=== PATIENT | male | born 1960 | race Caucasian/White ===

== ENCOUNTER 2019-01-15 08:02 | Emergency (ER) | payer BC ==
[~2019-01-15] VITALS: Ht 167.6 cm; Wt 90.7 kg
[2019-01-15] MEDS ORDERED: IV NORMAL SALINE 1000ML BAG 1,000 ML IV SCH (08:18)
--- NOTE | 2019-01-15 08:24 | PHYS DOC ---
Past Medical History Past Medical History: Diabetes-Type II, High Cholesterol Past Surgical History: No Surgical History Alcohol Use: Occasionally Drug Use: None Adult General Chief Complaint Chief Complaint: ABDOMINAL PAIN HPI HPI Patient is a 59 year old male who presents with nausea and vomiting for the past 5 days. He's also noticed diarrhea during the same five-day. That is been having looser than normal stools for the past month. Patient is normally constipated. He was changed from his regular high cholesterol medicine/statin around the time of this change in his stool pattern. He reports being unable to pass flatus for the past 5 days, is burping and belching. He has left lower quadrant pain. The burping and belching seems to make this left lower quadrant pain better. Nothing really seems to make it worse. Denies any blood in the stool or emesis. Denies any travel. Denies any other changes in diet or medicines. Pain is mild, one or 2 out of 10. Rates it is more of a discomfort. No radiation.[] Review of Systems Review of Systems Constitutional: Denies fever or chills [] Eyes: Denies change in visual acuity, redness, or eye pain [] HENT: Denies nasal congestion or sore throat [] Respiratory: Denies cough or shortness of breath [] Cardiovascular: No chest pain or palpitations[] GI: See history of present illness[] : Denies dysuria or hematuria [] Musculoskeletal: Denies back pain or joint pain [] Integument: Denies rash or skin lesions [] Neurologic: Denies headache, focal weakness or sensory changes [] Endocrine: Denies polyuria or polydipsia [] All other systems were reviewed and found to be within normal limits, except as documented in this note. Current Medications Current Medications Current Medications Medications (Trade) Dose Ordered Sig/[place] Start Time Stop Time Status Last Admin Dose Admin Hyoscyamine (Anaspaz) 0.125 mg ONCE ONCE 01/15/19 08:30 01/15/19 08:31 DC 01/15/19 08:43 0.125 MG Info (CONTRAST GIVEN -- Rx MONITORING) 1 each PRN DAILY PRN 01/15/19 09:00 01/17/19 08:59 Iohexol (Omnipaque 240 Mg/ml) 30 ml 1X ONCE 01/15/19 09:00 01/15/19 09:01 DC 01/15/19 09:00 30 ML Iohexol (Omnipaque 300 Mg/ml) 75 ml 1X ONCE 01/15/19 09:00 01/15/19 09:01 DC 01/15/19 09:00 75 ML Ondansetron HCl (Zofran) 4 mg 1X ONCE 01/15/19 08:30 01/15/19 08:31 DC Sodium Chloride 1,000 ml @ 1,000 mls/hr Q1H 01/15/19 08:18 01/15/19 09:17 DC 01/15/19 08:40 1,000 MLS/HR Allergies Allergies Allergies Coded Allergies Type Severity Reaction Last Updated Verified Penicillins Allergy Intermediate 01/15/19 Yes Physical Exam Physical Exam Constitutional: Well developed, well nourished, no acute distress, non-toxic appearance. [] HENT: Normocephalic, atraumatic, bilateral external ears normal, oropharynx moist, no oral exudates, nose normal. [] Eyes: PERRLA, EOMI, conjunctiva normal, no discharge. [] Neck: Normal range of motion, no tenderness, supple, no stridor. [] Cardiovascular:Heart rate regular rhythm, no murmur [] Lungs & Thorax: Bilateral breath sounds clear to auscultation [] Abdomen: Bowel sounds hyperactive, soft, mild left lower quadrant tenderness, no rebound, no guarding, no rigidity, no masses, no pulsatile masses. He sits up without any difficulty.[] Skin: Warm, dry, no erythema, no rash. [] Back: No tenderness, no CVA tenderness. [] Extremities: No tenderness, no cyanosis, no clubbing, ROM intact, no edema. [] Neurologic: Alert and oriented X 3, normal motor function, normal sensory function, no focal deficits noted. [] Psychologic: Affect normal, judgement normal, mood normal. [] Current Patient Data Vital Signs Vital Signs Date Time Temp Pulse Resp B/P (MAP) Pulse Ox O2 Delivery O2 Flow Rate FiO2 01/15/19 10:01 79 18 138/73 (94) 98 Room Air 01/15/19 08:05 98.2 98.2 Lab Values Laboratory Tests Test 01/15/19 08:30 01/15/19 09:45 White Blood Count 8.2 x10^3/uL (4.0-11.0) Red Blood Count 5.18 x10^6/uL (4.30-5.70) Hemoglobin 14.5 g/dL (13.0-17.5) Hematocrit 42.2 % (39.0-53.0) Mean Corpuscular Volume 81 fL (79-100) Mean Corpuscular Hemoglobin 28 pg (25-35) Mean Corpuscular Hemoglobin Concent 34 g/dL (31-37) Red Cell Distribution Width 13.3 % (11.5-14.5) Platelet Count 186 x10^3/uL (140-400) Neutrophils (%) (Auto) 53 % (31-73) Lymphocytes (%) (Auto) 30 % (24-48) Monocytes (%) (Auto) 16 % (0-9) H Eosinophils (%) (Auto) 1 % (0-3) Basophils (%) (Auto) 0 % (0-3) Neutrophils # (Auto) 4.4 x10^3uL (1.8-7.7) Lymphocytes # (Auto) 2.5 x10^3/uL (1.0-4.8) Monocytes # (Auto) 1.3 x10^3/uL (0.0-1.1) H Eosinophils # (Auto) 0.1 x10^3/uL (0.0-0.7) Basophils # (Auto) 0.0 x10^3/uL (0.0-0.2) Prothrombin Time 13.5 SEC (11.7-14.0) Prothrombin Time INR 1.1 (0.8-1.1) Sodium Level 139 mmol/L (136-145) Potassium Level 3.7 mmol/L (3.5-5.1) Chloride Level 102 mmol/L (98-107) Carbon Dioxide Level 25 mmol/L (21-32) Anion Gap 12 (6-14) Blood Urea Nitrogen 20 mg/dL (8-26) Creatinine 0.9 mg/dL (0.7-1.3) Estimated GFR (Cockcroft-Gault) 86.4 BUN/Creatinine Ratio 22 (6-20) H Glucose Level 144 mg/dL (70-99) H Calcium Level 9.5 mg/dL (8.5-10.1) Total Bilirubin 0.7 mg/dL (0.2-1.0) Aspartate Amino Transferase (AST) 14 U/L (15-37) L Alanine Aminotransferase (ALT) 22 U/L (16-63) Alkaline Phosphatase 69 U/L (46-116) Total Protein 7.2 g/dL (6.4-8.2) Albumin 4.0 g/dL (3.4-5.0) Albumin/Globulin Ratio 1.3 (1.0-1.7) Lipase 172 U/L (73-393) Urine Collection Type Unknown Urine Color Yellow Urine Clarity Clear Urine pH 5.5 Urine Specific [place] >=1.030 Urine Protein Negative mg/dL (NEG-TRACE) Urine Glucose (UA) Negative mg/dL (NEG) Urine Ketones (Stick) 40 mg/dL (NEG) Urine Blood Negative (NEG) Urine Nitrite Negative (NEG) Urine Bilirubin Small (NEG) Urine Urobilinogen Dipstick 1.0 mg/dL (0.2 mg/dL) Urine Leukocyte Esterase Negative (NEG) Urine RBC 0 /HPF (0-2) Urine WBC 0 /HPF (0-4) Urine Squamous Epithelial Cells Many /LPF Urine Bacteria 0 /HPF (0-FEW) Urine Mucus Marked /LPF Laboratory Tests 01/15/19 08:30 Laboratory Tests 01/15/19 08:30 EKG EKG [] Radiology/Procedures Radiology/Procedures CT of the abdomen and pelvis with contrast, 01/15/2019: HISTORY: Left lower quadrant pain, stool change Multidetector CT imaging was performed following oral and IV administration of contrast. There is mild streaky atelectasis or scarring posteriorly in the lung bases. No hepatic abnormality is detected. The gallbladder is unremarkable. The pancreas shows no abnormality. The spleen is of normal size. There is a small cyst in the lower pole of the left kidney. The kidneys show no evidence of obstruction. There is mild aortic calcific plaquing without evidence of aneurysm. No retroperitoneal, iliac or inguinal adenopathy is seen. Multiple small mesenteric lymph nodes are evident without pathologic enlargement. The prostate gland is at the upper limits of normal in size measuring 5 cm in width. It contains multiple calcifications. There is mild diffuse bladder wall thickening. The bowel loops are not dilated. The appendix is visualized and shows no abnormality. No free fluid or free air is evident in the abdomen or pelvis. There are mild scattered degenerative changes in the spine. IMPRESSION: 1. Mild diffuse bladder wall thickening which may reflect chronic bladder outlet obstruction in this patient with a borderline enlarged prostate gland versus cystitis. Clinical correlation suggested. 2. Small left renal cyst.[] Course & Med Decision Making Course & Med Decision Making Pertinent Labs and Imaging studies reviewed. (See chart for details) ED course: Patient arrived, was placed in bed, and tolerated exam well. He was able to tolerate oral contrast without any antiemetics and deferred that antiemetic. Was transferred to and from [place] with any complications. After the return laboratory and imaging findings, these were discussed with the patient voiced understanding. All questions were answered. Patient did at achieve good control of his discomfort with the medications otherwise administered in the emergency department. Patient was discharged in improved condition. Venkatesh decision making: There is no evidence of an obstruction, perforation, diverticulitis, masses, or other significant intra-abdominal pathology. No evidence of oral intake intolerance.[] Dragon Disclaimer Dragon Disclaimer This electronic medical record was generated, in whole or in part, using a voice recognition dictation system. Departure Departure Impression: Primary Impression: Nausea, vomiting, and diarrhea Additional Impression: Abdominal pain Disposition: HOME, SELF-CARE Condition: IMPROVED Referrals: UNKNOWN PCP NAME (PCP) Patient Instructions: Abdominal Pain, Diet for Diarrhea, Adult, Nausea and Vomiting Additional Instructions: Drink plenty of fluids. Follow-up with your regular doctor in 2 days. Return to the ER if worsening discomfort or any other concerns. Scripts Psyllium Husk (METAMUCIL) 0.52 Gm Capsule 0.52 GM PO DAILY, #30 CAP Prov: JORDAN TORIBIO DO 01/15/19 Ondansetron Hcl (ZOFRAN) 4 Mg Tablet 4 MG PO PRN TID PRN for NAUSEA/VOMITING, #15 nausea/vomiting Prov: JORDAN TORIBIO DO 01/15/19 Hyoscyamine Sulfate (LEVSIN) 0.125 Mg Tablet 0.125 MG PO QID, #30 TAB Prov: JORDAN TORIBIO DO 01/15/19 Problem Qualifiers Additional Impression: Abdominal pain Abdominal location: left lower quadrant Qualified Codes: R10.32 - Left lower quadrant pain JORDAN TORIBIO DO Jan 15, 2019 08:24
[2019-01-15] MEDS ORDERED: HYOSCYAMINE 0.125 MG TAB.RAPDIS PO ONE (08:30)
[2019-01-15] MEDS ORDERED: ONDANSETRON PF 4 MG/2 ML VIAL. IV ONE (08:30)
[2019-01-15 08:45] LABS: CALCIUM 9.5 mg/dL (8.5-10.1); CREATININE 0.9 mg/dL (0.7-1.3); GFR 86.4; POTASSIUM 3.7 mmol/L (3.5-5.1)
[2019-01-15 08:50] LABS: BASO % 0 % (0-3); EOS # 0.1 x10^3/uL (0.0-0.7); EOS % 1 % (0-3); HEMATOCRIT 42.2 % (39.0-53.0); HEMOGLOBIN 14.5 g/dL (13.0-17.5); LYMPH # 2.5 x10^3/uL (1.0-4.8); LYMPH % 30 % (24-48); MEAN CORPUSCULAR HEMOGLOBIN 28 pg (25-35); MEAN CORPUSCULAR HGB CONC 34 g/dL (31-37); MEAN CORPUSCULAR VOLUME 81 fL (79-100); MONO # 1.3 x10^3/uL (0.0-1.1); MONO % 16 % (0-9); NEUT # 4.4 x10^3uL (1.8-7.7); NEUT % 53 % (31-73); PLATELET COUNT 186 x10^3/uL (140-400); RED BLOOD COUNT 5.18 x10^6/uL (4.30-5.70); RED CELL DISTRIBUTION WIDTH 13.3 % (11.5-14.5); WHITE BLOOD COUNT 8.2 x10^3/uL (4.0-11.0)
[2019-01-15 08:51] LABS: ALBUMIN/GLOBULIN RATIO 1.3 (1.0-1.7); TOTAL BILIRUBIN 0.7 mg/dL (0.2-1.0); TOTAL PROTEIN 7.2 g/dL (6.4-8.2)
[2019-01-15 08:59] LABS: PROTHROMBIN TIME PATIENT 13.5 SEC (11.7-14.0)
[2019-01-15] MEDS ORDERED: IOHEXOL 240 MG/ML 50ML VIAL. PO ONE (09:00)
[2019-01-15] MEDS ORDERED: IOHEXOL 300 MG/ML 100ML VIAL. IV ONE (09:00)
[2019-01-15] MEDS ORDERED: CONTRAST GIVEN. MC PRN (09:00)
--- NOTE | 2019-01-15 10:18 | RAD ---
CT of the abdomen and pelvis with contrast, 01/15/2019: HISTORY: Left lower quadrant pain, stool change Multidetector CT imaging was performed following oral and IV administration of contrast. There is mild streaky atelectasis or scarring posteriorly in the lung bases. No hepatic abnormality is detected. The gallbladder is unremarkable. The pancreas shows no abnormality. The spleen is of normal size. There is a small cyst in the lower pole of the left kidney. The kidneys show no evidence of obstruction. There is mild aortic calcific plaquing without evidence of aneurysm. No retroperitoneal, iliac or inguinal adenopathy is seen. Multiple small mesenteric lymph nodes are evident without pathologic enlargement. The prostate gland is at the upper limits of normal in size measuring 5 cm in width. It contains multiple calcifications. There is mild diffuse bladder wall thickening. The bowel loops are not dilated. The appendix is visualized and shows no abnormality. No free fluid or free air is evident in the abdomen or pelvis. There are mild scattered degenerative changes in the spine. IMPRESSION: 1. Mild diffuse bladder wall thickening which may reflect chronic bladder outlet obstruction in this patient with a borderline enlarged prostate gland versus cystitis. Clinical correlation suggested. 2. Small left renal cyst. PQRS Compliance Statement: One or more of the following individualized dose reduction techniques were utilized for this examination: 1. Automated exposure control 2. Adjustment of the mA and/or kV according to patient size 3. Use of iterative reconstruction technique Electronically signed by: Son Mcallister MD (01/15/2019 10:15 AM) [facility]
[2019-01-15 10:34] LABS: BILIRUBIN,URINE SMALL (NEG); CLARITY,URINE CLEAR; COLOR,URINE YELLOW; NITRITE,URINE NEGATIVE (NEG); PH,URINE 5.5; PROTEIN,URINE NEGATIVE (NEG-TRACE)
[2019-01-15 10:44] LABS: BACTERIA,URINE 0 /HPF (0-FEW); RBC,URINE 0 /HPF (0-2); SQUAMOUS EPITHELIAL CELL,UR MANY /LPF; WBC,URINE 0 /HPF (0-4)
[2019-01-15] MEDS ORDERED: ONDA4TAB7 PO (10:55)
[2019-01-15] MEDS ORDERED: PSYL0.5215 PO (10:55)
[2019-01-15] MEDS ORDERED: HYOS0.1264 PO (10:55)
[2019-01-15 11:00] VITALS: BP 126/80
== END 2019-01-15 11:20 | disposition home or self-care (01) ==
LOC: ER 08:02
DX: R11.2 Nausea with vomiting, unspecified (principal); R19.7 Diarrhea, unspecified; R10.32 Left lower quadrant pain; K59.00 Constipation, unspecified; E78.00 Pure hypercholesterolemia, unspecified; E11.9 Type 2 diabetes mellitus without complications; Z88.0 Allergy status to penicillin
CPT/HCPCS: 36415; 74177; 80053; 81001; 83690; 85025; 85610; 96360; 99284; J7030; Q9966; Q9967